=== PATIENT | female | born 1945 | race Caucasian/White ===

== ENCOUNTER → 2016-12-06 | Outpatient (CLI) | payer MEDICARE | END | disposition home or self-care (01) | LOC: PCVCIMAG 12:55 | PROVIDERS: ATTEND Nuclear Medicine Nuclear Cardiology | DX: I65.23 Occlusion and stenosis of bilateral carotid arteries (principal); I70.203 Unspecified atherosclerosis of native arteries of extremities, bilateral legs; I25.10 Atherosclerotic heart disease of native coronary artery without angina pectoris; I10 Essential (primary) hypertension; E78.00 Pure hypercholesterolemia, unspecified; I48.91 Unspecified atrial fibrillation; Z72.0 Tobacco use; Z95.820 Peripheral vascular angioplasty status with implants and grafts | CPT/HCPCS: 93880; 93925; 93978; G0463 ==